=== PATIENT | male | born 1995 | race Caucasian/White ===

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

== ENCOUNTER 2017-03-15 11:50 | Emergency (ER) | payer OTHER ==
[2017-03-15 11:54] VITALS: BP 120/75; PULSE 90; TEMP 98.5; BMI 23.6
[2017-03-15] MEDS ORDERED: predniSONE 20 MG TABLET (UD) ONE (12:13)
[2017-03-15] MEDS ORDERED: ALBUTEROL SO4 2.5/IPRATROPIUM 0.5 INH SOL 3 ML VIAL.NEB. NEB ONE (12:13)
--- NOTE | 2017-03-15 12:36 | PDOC ---
History of Present Illness - General Chief Complaint: Itching Stated Complaint: CONGESTION Time Seen by Provider: 03/15/17 12:27 History Source: Patient Exam Limitations: No Limitations - History of Present Illness Initial Comments: 03/15/17 12:31 With help from Barbadian interpretation, patient is here with complaints of fine rash that is pruritic that started 3 days ago. States occurred first on his face and has other blotches elsewhere on his body including chest wall, lower abdomen, thighs, and various places on his forearms. Patient states has used Benadryl with minimal resolved. And has tried hydrocortisone cream with minimal resolved. Patient denies fever, facial swelling lips tongue or airway problems, no cough or shortness of breath. Patient has no history of ALLERGIES or anaphylaxis. Patient denies knowledge of changes of lotions, creams, shampoos, soaps or any other environmental allergens. 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 Has no food ALLERGIES, no other family member at home has rash, and has had no recent travel. Timing/Duration: reports: constant, changing over time Severity: reports: mild Past History - Travel Traveled outside of the country in the last 30 days: No Close contact w/someone who was outside of country & ill: No - Past Medical History Allergies/Adverse Reactions: Allergies Allergy/AdvReac Type Severity Reaction Status Date / Time No Known Allergies Allergy Verified 03/15/17 11:54 Home Medications: Ambulatory Orders NK [No Known Home Medication] 12/15/16 Other medical history: NONE - Suicide/Smoking/Psychosocial Hx Smoking History: Never smoked Hx Alcohol Use: No Drug/Substance Use Hx: No Substance Use Type: None Review of Systems - Review of Systems Able to Perform ROS?: Yes Is the patient limited Yakut proficient: Yes Constitutional: Yes: See HPI. No: Symptoms Reported, Fever, Malaise HEENTM: Yes: See HPI. No: Symptoms Reported, Nose Pain, Nose Congestion, Throat Swelling, Difficulty Swallowing Respiratory: Yes: See HPI. No: Symptoms reported, Cough, Shortness of Breath, Wheezing Musculoskeletal: Yes: Symptoms Reported Integumentary: Yes: Symptoms Reported, See HPI, Pruritus, Rash *Physical Exam - Vital Signs Last Vital Signs Temp Pulse Resp BP Pulse Ox 98.5 F 90 20 120/75 98 03/15/17 11:51 03/15/17 11:51 03/15/17 11:51 03/15/17 11:51 03/15/17 11:51 - Physical Exam General Appearance: Yes: Nourished, Appropriately Dressed, Apparent Distress, Mild Distress HEENT: positive: EOMI, CINDY, Normal ENT Inspection, TMs Normal, Pharynx Normal ( noted thick white posterior sinus drainage, but no erythema or tonsillar exudate noted. No airway closure or edema noted), Rhinorrhea. negative: Tonsillar Erythema Neck: positive: Supple. negative: Tender, Lymphadenopathy (R), Lymphadenopathy (L) Respiratory/Chest: positive: Lungs Clear Cardiovascular: positive: Regular Rhythm Gastrointestinal/Abdominal: positive: Soft. negative: Tender Musculoskeletal: positive: Normal Inspection Extremity: positive: Normal Capillary Refill, Normal Inspection Integumentary: positive: Normal Color, Dry, Rash (fine erythematous based maculopapular rash to face and different patches on abdomen, forearms and upper chest wall.). 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 Possible contact dermatitis from heavy detergent use. We will treat with short course of prednisone, antihistamine use , and have follow-up with account support associate *DC/Admit/Observation/Transfer Diagnosis at time of Disposition: Contact dermatitis Qualifiers: Contact dermatitis type: unspecified Contact dermatitis trigger: unspecified trigger Qualified Code(s): L25.9 - Unspecified contact dermatitis, unspecified cause - Discharge Dispostion Disposition: HOME Condition at time of disposition: Stable - Patient Instructions Printed Discharge Instructions: DI for Contact Dermatitis Additional Instructions: Rest, keep cool and dry- avoid strenuous activity or hot /humid environments Less hot showers, no abrasive soaps May use heavy creams like Eucerin or Cetaphil to keep skin moist May apply Aveeno, calamine lotion, [id number] hydrocortisone creams as needed for symptoms May use Benadryl at night for antihistamine, Zyrtec/ Ellen or Claritin for daytime antihistamine use to help with itching May use [id number] hydrocortisone cream on all areas except face Try to identify cause for rash and avoid exposures Followup with PMD in one week if no resolution Make appointment with account support associate for evaluation when possible Continue prednisone 40 mg daily as directed [place], mantenga fresco y seco - evite la actividad extenuante o ambientes calientes / hmedos Duchas menos calientes, no jabones abrasivos Puede usar cremas pesadas sukh Eucerin o Cetaphil para mantener la piel hmeda Puede aplicar Aveeno, locin de calamina, cremas de hidrocortisona sin receta segn sea necesario para los sntomas Puede utilizar Benadryl en la noche para el antihistamnico, Zyrtec / Ellen o Claritin para el uso diurno del antihistamnico para ayudar con picar Puede usar crema de hidrocortisona de venta shawn en todas las reas excepto la romero Trate de identificar la causa de la erupcin y evitar las exposiciones Seguimiento con PMD en clara semana si no hay resolucin Hacer clara augustina con el dermatlogo para arteaga evaluacin cuando sea posible Continuar con 40 mg de prednisona al da, segn las indicaciones - Post Discharge Activity Forms/Work/School Notes: Back to Work
== END 2017-03-15 12:53 | disposition home or self-care (01) ==
LOC: JERFT 11:50
DX: L25.9 Unspecified contact dermatitis, unspecified cause (principal)
CPT/HCPCS: 99281-25

== ENCOUNTER 2020-05-25 14:41 | Emergency (ER) | payer OTHER ==
[2020-05-25 14:49] VITALS: BP 122/79; PULSE 75; TEMP 97.2; BMI 24.3
[2020-05-25 16:37] LABS: PH,URINE 5.5 (5.0-8.0); URINE APPEARANCE CLEAR; URINE BILIRUBIN NEGATIVE (NEGATIVE); URINE COLOR YELLOW; URINE GLUCOSE (UA) NEGATIVE (NEGATIVE); URINE KETONE NEGATIVE (NEGATIVE); URINE LEUK ESTERASE NEGATIVE (NEGATIVE); URINE NITRITE NEGATIVE (NEGATIVE); URINE PROTEIN NEGATIVE (NEGATIVE); URINE UROBILINOGEN 0.2 mg/dL (0.2-1.0)
[2020-05-25] MEDS ORDERED: AZITHROMYCIN 250 MG TABLET PO ONE (16:46)
[2020-05-25] MEDS ORDERED: AZITHROMYCIN 250 MG TABLET ONE (16:50)
== END 2020-05-25 17:22 | disposition home or self-care (01) ==
LOC: JER 14:41
DX: R59.0 Localized enlarged lymph nodes (principal)
CPT/HCPCS: 36415; 81003; 87086; 87491; 87591; 99284-25

== ENCOUNTER 2020-07-12 14:42 | Emergency (ER) | payer OTHER ==
[2020-07-12 14:57] VITALS: BMI 25.8
[2020-07-12 17:02] VITALS: BP 112/71; PULSE 79
[2020-07-12 18:07] LABS: PH,URINE 6.5 (5.0-8.0); URINE APPEARANCE CLEAR; URINE BILIRUBIN NEGATIVE (NEGATIVE); URINE COLOR YELLOW; URINE GLUCOSE (UA) NEGATIVE (NEGATIVE); URINE KETONE NEGATIVE (NEGATIVE); URINE LEUK ESTERASE NEGATIVE (NEGATIVE); URINE NITRITE NEGATIVE (NEGATIVE); URINE PROTEIN NEGATIVE (NEGATIVE)
== END 2020-07-12 17:03 | disposition home or self-care (01) ==
LOC: JER 14:42
DX: R30.0 Dysuria (principal); R10.32 Left lower quadrant pain
CPT/HCPCS: 36415; 81003; 87086; 87491; 87591; 99283-25